=== PATIENT | male | born 1950 | race Caucasian/White ===

== ENCOUNTER → 2020-01-21 | Outpatient (CLI) | payer OTHER | LOC: LAB 12:05 | PROVIDERS: ATTEND Ophthalmology | DX: Z01.812 Encounter for preprocedural laboratory examination (principal); Z20.828 Contact with and (suspected) exposure to other viral communicable diseases ==

== ENCOUNTER 2020-01-27 06:30 | Day surgery (SDC) | payer OTHER ==
[~2020-01-27] VITALS: Ht 177.8 cm; Wt 81.7 kg
[~2020-01-27 06:30] MED LIST: ALLOPURINOL 30300 M1 PO; LIPITOR 20 MG T20 M1 PO; VITAMIN C1000 MG PO
[2020-01-27 07:10] VITALS: BP 131/69
--- NOTE | 2020-01-31 06:17 | O ---
[facility] [place] [address] OPERATIVE REPORT Name: ARABELLA LEAHY Room #: DEP [facility].#: [id number] Admission: 01/27/20 Attend Phys: Jh Luna MD Discharge: 01/27/20 Date of : 46 Report #: [id number] THIS REPORT FOR: cc: Iggy Restrepo,Iggy Rios,Jh Kincaid MD ~ CC: Dr. MARIBELL Miranda DATE OF SERVICE: 01/27/2020 FRAME COVERER: None. PREOPERATIVE DIAGNOSIS: Bilateral lower lid entropion. POSTOPERATIVE DIAGNOSIS: Bilateral lower lid entropion. OPERATION PERFORMED: Bilateral lower lid entropion repair. ANESTHESIA: Local with IV sedation. COMPLICATIONS: None. INDICATIONS FOR PROCEDURE: This patient has bilateral lower lid entropion with chronic irritation and discharge. The current procedures are being undertaken in order to improve the patient's level of comfort and visual function. Informed consent was obtained to include but not limited to the loss of vision, bleeding, infection, scarring, failure to improve the problem and need for further surgery. DESCRIPTION OF OPERATION: The patient was taken to the operating room, where 2% Xylocaine with epinephrine mixed with equal parts of 0.75% Marcaine with Wydase was administered transcutaneously and transconjunctivally to each lower lid and lateral canthal area. The patient was then prepped and draped in the usual sterile fashion. A Donna clamp was used to clamp the left lateral canthus, following which a sharp canthotomy and cantholysis were performed. Hemostasis was achieved with a monopolar cautery, as it was throughout the case. A tarsal strip was prepared laterally, removing the lash bearing portion of the redundant lid margin and the redundant tarsal plate. A transconjunctival dissection was then undertaken just inferior to the lower border of the tarsal plate. The lower lid retractors were disinserted from the inferior border of the tarsal plate. The lower lid retractors were then advanced and reattached to the anterior surface of the tarsal plate with mattress 5-0 chromic sutures passed [address] [address] OPERATIVE REPORT Name: ARABELLA LEAHY Amandeep Room #: DEP [facility] M.R.#: [id number] Admission: 01/27/20 Attend Phys: Jh Luna MD Discharge: 01/27/20 Date of : 46 Report #: [id number] transconjunctivally and secured in the infraciliary margin. The tarsal strip was then secured laterally with 2 interrupted 5-0 Prolene sutures. The subcutaneous structures and the skin were then closed with multiple interrupted 6-0 plain gut sutures so the lateral canthal angle was sharply reformed. The wounds were then cleaned and dressed with ophthalmic antibiotic ointment. The patient was then transported to the recovery area, having tolerated the procedure well with no anesthetic or operative complications being noted. <ELECTRONICALLY SIGNED> By: Jh Luna MD 01/31/2017 Jh Luna MD /nt
== END 2020-01-27 09:45 | disposition home or self-care (01) ==
LOC: OR 06:30 → TBA 06:31 → OR 09:45
PROVIDERS: ATTEND Ophthalmology
DX: H02.002 Unspecified entropion of right lower eyelid (principal); H02.005 Unspecified entropion of left lower eyelid; E78.00 Pure hypercholesterolemia, unspecified; M10.9 Gout, unspecified; Z98.890 Other specified postprocedural states; Z79.899 Other long term (current) drug therapy; Z88.8 Allergy status to other drugs, medicaments and biological substances
CPT/HCPCS: 50010; 50101; 50386; 50398; 51636; 56527; 56531; 62110; 62850; 70005